=== PATIENT | male | born 2000 | race Caucasian/White ===

== ENCOUNTER → 2020-02-13 14:18 | Outpatient (BNVA) | payer OTHER, SELFPAY | PROVIDERS: Family Provider Family Medicine; Visit Provider Nurse Practitioner Family | DX: Z11.59 Encounter for screening for other viral diseases (principal); Z20.828 Contact with and (suspected) exposure to other viral communicable diseases; J06.9 Acute upper respiratory infection, unspecified | CPT/HCPCS: 87635 ==

== ENCOUNTER 2020-08-02 00:37 | Emergency (ER) | payer BC, SELFPAY ==
[2020-08-02 00:38] VITALS: BP 110/64; PULSE 120; RESP 22; TEMP 36.7; O2SAT 100; BMI 23.0
--- NOTE | 2020-08-02 00:42 | W.ED.ABDPA2 ---
HPI - Abdominal Pain General: Chief Complaint: Abdominal Pain Stated Complaint: ABD PAIN Time Seen by Provider: 08/02/20 00:39 Source: patient and EMS Mode of arrival: EMS Limitations: no limitations History of Present Illness: HPI narrative: 20-year-old male states the last 3 nights he has been getting urticaria and abdominal pain. Tonight abdominal pain began again roughly 2 to 3 hours ago. States is diffuse in nature but worse in the epigastric region. He rates it a 7 out of 10. He does have a rash to bilateral arms. He was seen at [facility] yesterday states he gave him 1 dose of steroids. He has not been taking any other meds. He knows no known allergy to foods. Denies any fevers. Associated Symptoms: Denies chills, dysuria and fever(s) Review of Systems Const: Denies: fever(s), chills, body aches or change in appetite Eyes: Denies: blurry vision or eye discomfort ENMT: Denies: throat pain or dental pain Card: Denies: chest pain Resp: Denies: dyspnea GI: Reports: abdominal pain : Denies: dysuria Musc: Denies: neck pain or back pain Skin/Breast: Reports: rash Neuro: Denies: headache(s) Psych: Denies: depression Ricki/Lymph: Denies: easy bruising All/Imm: Denies: urticaria Physical Exam Const: COMMON NORMALS: no acute distress, patient oriented x3 and healthy appearing HENMT: COMMON NORMALS: normocephalic and atraumatic HEAD & SCALP: normocephalic and atraumatic Eye: COMMON NORMALS: Equal, round and reactive pupils present and EOMs intact bilaterally PUPIL: Yes Equal, round and reactive pupils present Neck/C-Spine: COMMON NORMALS: full ROM and supple Chest: COMMONS NORMALS: normal inspection of the chest and normal palpation of entire chest wall Resp: COMMON NORMALS: normal respiratory effort, No retractions, No use of accessory muscles and clear to auscultation bilaterally AUSCULTATION: clear to auscultation bilaterally Cardio: COMMON NORMALS: regular rate, regular rhythm and No murmurs present (Cardio) RATE: regular rate RHYTHM: regular rhythm GI: COMMON NORMALS: Normal to inspection, nondistended, normoactive bowel sounds present, Soft to palpation, non-tender and no masses PALPATION: Yes Soft to palpation Extremity: COMMON NORMALS: normal to inspection and full ROM Neuro: COMMON NORMALS: patient oriented x3, moves all extremities and no focal motor deficits Psych: COMMON NORMALS: mental status grossly normal, Normal thought process present and cooperative THOUGHT PROCESS: Normal thought process present Skin: COMMON NORMALS: no wounds NARRATIVE SKIN EXAM: Urticarial rash to arms Course Vital Signs: Vital signs: Vital Signs Temperature 98.0 F 08/02/20 00:38 Pulse Rate 120 H 08/02/20 00:38 Respiratory Rate 22 H 08/02/20 00:38 Blood Pressure 110/64 08/02/20 00:38 Pulse Oximetry 100 08/02/20 00:38 MDM - Abdominal Pain MDM Narrative: Medical decision making narrative: Patient presents with abdominal pain does have a duodenitis on the CT scan. We will treat him with erythromycin sulcal fate and Protonix. He has a colonoscopy scheduled in [place] and I informed him to call the person doing it try to schedule the EGD as well. He is to follow-up as scheduled and return if worsening. Lab Data: Labs: Lab Results 08/02/20 08/02/20 Range/Units 00:50 00:50 WBC 15.1 H (4.5-13.0) 10^3/ uL RBC 5.97 H (4.1-5.3) 10^6/u L Hgb 19.3 H (11.7-16.6) g/dL Hct 53.0 H (42.0-52.0) % MCV 88.8 (80-94) fL MCH 32.3 (28.0-34.0) pg MCHC 36.4 H (30.0-36.0) g/dL RDW 10.8 L (12.1-15.1) % Plt Count 336 (130-400) 10^3/c mm MPV 10.6 H (7.4-10.4) fL Neut % (Auto) 62.8 % Lymph % (Auto) 29.7 % [place] % (Auto) 5.9 % Eos % (Auto) 1.1 % Baso % (Auto) 0.1 % Neut # (Auto) 9.51 H (1.8-8.0) 10^3/u L Lymph # (Auto) 4.5 (1.5-6.5) 10^3/u L [place] # (Auto) 0.9 (0.2-0.9) 10^3/u L Eos # (Auto) 0.2 (0.0-0.8) 10^3/u L Baso # (Auto) 0.0 (0.0-0.1) 10^3/u L Nucleated RBC % (a uto) 0 % Nucleated RBCs # 0.0 /100WBC Sodium 139 (136-145) mmol/L Potassium 2.7 L* (3.5-5.1) mmol/L Chloride 102 (98-107) mmol/L Carbon Dioxide 24 (22-29) mmol/L Anion Gap 15.7 (5-19) BUN 10 (6-20) mg/dL Creatinine 0.9 (0.7-1.2) mg/dL GFR Calculation 107.6 (90-130) mL/min Glucose 116 H (65-115) mg/dL Calculated Osmolal ity 288 (285-295) mOsm/k g Calcium 8.9 (8.5-10.5) mg/dL Total Bilirubin 0.7 (0.15-1.2) mg/dL AST 23 (0-40) U/L ALT 31 (0-41) U/L Alkaline Phosphata se 42 (40-130) IU/L Total Protein 6.2 L (6.6-8.7) g/dL Albumin 4.0 (3.5-5.2) g/dL Globulin 2.2 (1.3-4.6) g/dL Lipase 37 (13-60) U/L Imaging Data ^: CT Abd/Pel: Radiologist's impression: [address] [place] [address] CT Scan Report Signed Patient: Aristeo White Unit #: [id number] : 2000 Age/Sex: 20 / M ADM Date: 08/02/20 Loc: ER Room/Bed: Attending Dr: Ordering Provider/Ordering MD: Sariah Flor MD Date of Service: 08/02/20 Procedure(s): CT abdomen pelvis w con* [id number] Accession Number(s): [id number] Report Number: [id number] PROCEDURE INFORMATION: Exam: CT Abdomen And Pelvis With Contrast Exam date and time: 08/02/2020 12:44 AM Age: 20 years old Clinical indication: Abdominal pain; Patient HX: Transient periumbilical pain for several days; Additional info: Abd pain TECHNIQUE: Imaging protocol: Computed tomography of the abdomen and pelvis with contrast. Radiation optimization: All CT scans at this facility use at least one of these dose optimization techniques: automated exposure control; mA and/or kV adjustment per patient size (includes targeted exams where dose is matched to clinical indication); or iterative reconstruction. Contrast material: VISI 320; Contrast volume: 95 ml; Contrast route: INTRAVENOUS (IV); COMPARISON: No relevant prior studies available. RADIATION DOSE METRICS: Total DLP (mGy-cm): 1076.87 FINDINGS: Liver: Normal. No mass. Gallbladder and bile ducts: Normal. No calcified stones. No ductal dilation. Pancreas: Normal. No ductal dilation. Spleen: Normal. No splenomegaly. Adrenal glands: Normal. No mass. Kidneys and ureters: Normal. No hydronephrosis. Stomach and bowel: In there is some low attenuation surrounding the proximal transverse duodenum and mild enhancement of the duodenal mucosa, findings that suggest duodenitis. Additionally, there is some mild mucosal enhancement the small and small bowel enteritis cannot be excluded. Appendix: No evidence of appendicitis. Intraperitoneal space: There is moderate free fluid seen within the dependent portion of the pelvis. Vasculature: Unremarkable. No abdominal aortic aneurysm. Lymph nodes: Unremarkable. No enlarged lymph nodes. Urinary bladder: Unremarkable as visualized. Reproductive: Unremarkable as visualized. Bones/joints: Unremarkable. No acute fracture. Soft tissues: Unremarkable. CT/CT abdomen pelvis w con* [id number] IMPRESSION: 1. Low attenuation seen surrounding the duodenum and small with mild mucosal enhancement present, findings suggest a small bowel enteritis. 2. Moderate fluid is seen in the dependent portion of the pelvis. Discharge Plan Discharge Patient Disposition: Home Clinical Impression: Abdominal pain, Duodenitis Condition: Stable Prescriptions: New hydrocodone-acetaminophen 5-325 mg tablet 1 tab PO Q6H PRN (Reason: pain) Qty: 14 RF: 0 ondansetron 4 mg tablet,disintegrating 4 mg PO Q6H PRN (Reason: nausea and vomiting) Qty: 14 RF: 0 Protonix 40 mg tablet,delayed release (DR/EC) 40 mg PO DAILY Qty: 60 RF: 0 sucralfate 1 gram tablet 1 g PO BID 28 Days Qty: 56 RF: 0 No Action fluvoxamine 100 mg tablet 100 mg PO DAILY RF: 0 Discharge Orders: Discharge ED (Routine); Ordered 08/02/20 Ordered By: Sariah Flor Referrals: Aamir Fernandez DO [Primary Care Provider] - Semaj Trejo MD [Physician] - 1-3 days Discharge Diet: Advance as tolerated Discharge Activity: Resume usual activity Patient Instructions: Abdominal Pain (ED) Coding Level of Care Code ED [employer] for Chg Fwd Exam Comprehensive
[2020-08-02 00:55] LABS: Basophils % 0.1 %; Eosinophils # 0.2 10^3/uL (0.0-0.8); Eosinophils % 1.1 %; Hemoglobin 19.3 g/dL (11.7-16.6); Lymphocytes # 4.5 10^3/uL (1.5-6.5); Lymphocytes % 29.7 %; Mean Corpuscular HGB Conc 36.4 g/dL (30.0-36.0); Mean Corpuscular Hemoglobin 32.3 pg (28.0-34.0); Mean Corpuscular Volume 88.8 fL (80-94); Mean Platelet Volume 10.6 fL (7.4-10.4); Monocytes # 0.9 10^3/uL (0.2-0.9); Monocytes % 5.9 %; Neutrophils # 9.51 10^3/uL (1.8-8.0); Neutrophils % 62.8 %; Nucleated Red Blood Cells % 0 %; Platelet Count 336 10^3/cmm (130-400); Red Blood Count 5.97 10^6/uL (4.1-5.3); Red Cell Distribution Width 10.8 % (12.1-15.1); White Blood Count 15.1 10^3/uL (4.5-13.0)
[2020-08-02] MEDS: diphenhydrAMINE 50 mg/mL SDV 1mL IVP (00:55)
[2020-08-02] MEDS: famotidine 20 mg/2 mL INJ 40 MG IVP (00:56)
[2020-08-02] MEDS: sodium chloride 0.9% 1,000 ML 999 ML IV (00:59)
[2020-08-02] MEDS: iodixanol 320 mg/mL 100mL Btl IV (01:07)
[2020-08-02 01:13] LABS: Alanine Aminotransferase 31 U/L (0-41); Alkaline Phosphatase 42 IU/L (40-130); Anion Gap 15.7 (5-19); Aspartate Amino Transferase 23 U/L (0-40); Blood Urea Nitrogen 10 mg/dL (6-20); Calcium 8.9 mg/dL (8.5-10.5); Carbon Dioxide 24 mmol/L (22-29); Chloride 102 mmol/L (98-107); Creatinine Clr Calc Pharmacy 139.1059; Globulin 2.2 g/dL (1.3-4.6); Glomerular Filtration Rate 107.6 mL/min (90-130); Glucose 116 mg/dL (65-115); Lipase 37 U/L (13-60); Osmolality Calculated 288 mOsm/kg (285-295); Sodium 139 mmol/L (136-145); Total Bilirubin 0.7 mg/dL (0.15-1.2); Total Protein 6.2 g/dL (6.6-8.7)
[2020-08-02 01:21] LABS: Potassium 2.7 mmol/L (3.5-5.1)
[2020-08-02] MEDS: potassium chloride ER 20 mEq Tablet 40 MEQ PO (01:27)
[2020-08-02 01:59] VITALS: BP 94/43; PULSE 72; RESP 18; O2SAT 100
--- NOTE | 2020-08-02 08:10 | DCPLANNER ---
technical support manager had message to schedule a follow up appointment for patient with general surgery for duodenitis with Dr. Trejo. technical support manager emailed patients information to both Arlen and April at general surgery. Patients information will be printed and reviewed. Clinic will call patient with appointment information.
--- NOTE | 2020-08-06 07:46 | DCPLANNER ---
associate program manager was notified that when clinic called patient to schedule follow up appointment, that patient declined appointment at this time.
== END 2020-08-02 02:01 | disposition home or self-care (01) ==
PROVIDERS: Emergency Provider Emergency Medicine; PCP Family Medicine
DX: R10.9 Unspecified abdominal pain (principal); K29.80 Duodenitis without bleeding
CPT/HCPCS: 74177; 80053; 83690; 85025; 96361; 96374; 96375; 99283; J1200; J3490; J7030; Q9967

== ENCOUNTER → 2025-04-13 09:55 | Outpatient (BNVA) | payer MEDICAID, SELFPAY | PROVIDERS: PCP Family Medicine; Visit Provider Dermatology | DX: D22.5 Melanocytic nevi of trunk (principal) | CPT/HCPCS: 54100; 99203 ==